=== PATIENT | male | born 1995 ===

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

== ENCOUNTER 2018-05-02 17:03 | Emergency (ER) | payer OTHER ==
[2018-05-02] MEDS ORDERED: NS 1,000 ML IV ONE ×2 (17:29)
[2018-05-02] MEDS ORDERED: ONDANSETRON 4 MG/2 ML VIAL IVP ONE (17:30)
[2018-05-02] MEDS ORDERED: PANTOPRAZOLE SODIUM 40 MG VIAL IVP ONE (18:03)
--- NOTE | 2018-05-02 18:08 | EDPHY ---
H & P Stated Complaint: c/o flu like s/s x 3 days today vomiting blood Time Seen by Provider: 05/02/18 17:11 HPI/ROS: This patient reports 3 days of illness with intermittent vomiting. He explains that 3 days ago he started with coryza and vomiting with associated dry hacking cough. Since then he has tolerated fluids intermittently but currently has vomiting with ongoing nausea. He also describes associated myalgias and fevers. He has been taking ibuprofen P regularly 600 mg per 6 hr for aches and fevers and then today shortly prior to arrival had some red blood in his emesis- small to moderate amount. He was brought in by his mother for evaluation of these complaints. ROS: Constitutional: Subjective low-grade fevers. Positive myalgias and fatigue HEENT: Coryza but no sinus pain. He does have a sore throat of moderate intensity. He is not sure if that started after the vomiting or before. Denies any ear pain. Pulmonary: No shortness of breath. No pleuritic pain. No hemoptysis Cardiovascular: He denies lightheadedness. No chest pain. GI: As per HPI. Normal bowel movements with no diarrhea. No dark tarry stools. No larissa coffee-ground emesis. No abdominal pain : No complaints Integumentary: No rash 10 point review of symptoms is performed and otherwise negative with exception of pertinent positives and negatives listed in HPI and ROS Source: Patient Exam Limitations: No limitations - Personal History Current Tetanus Diphtheria and Acellular Pertussis (TDAP): Yes - Medical/Surgical History PMH: Type 1 diabetes Hx Asthma: No Hx Chronic Respiratory Disease: No Hx Diabetes: Yes Hx Cardiac Disease: No Hx Renal Disease: No Hx Cirrhosis: No Hx Alcoholism: No Hx HIV/AIDS: No Hx Splenectomy or Spleen Trauma: No Other PMH: denies - Family History Significant Family History: No pertinent family hx - Social History Smoking Status: Never smoked Alcohol Use: Rarely Drug Use: None - Physical Exam Exam: General Appearance: Alert, no distress. Eyes: Pupils equal and round no pallor or injection. ENT, Mouth: Mucous membranes moist. Oropharynx: No significant erythema exudates is appreciated Respiratory: Dry hacking cough with no rales. No wheezing. No rhonchi. Cardiovascular: Regular rate and rhythm. Gastrointestinal: Abdomen is soft and nontender, no masses, bowel sounds normal. Neurological: GCS 15. Skin: Warm and dry, no rashes. Musculoskeletal: Neck is supple nontender. Extremities are symmetrical, full range of motion. Psychiatric: Mood and affect are normal DIFFERENTIAL DIAGNOSIS: After history and physical exam differential diagnosis was considered for influenza, URI with cough, bronchitis, dehydration: Doubt DKA, doubt pneumonia Constitutional: Initial Vital Signs Temperature (C) 37 C 05/02/18 17:14 Heart Rate 111 H 05/02/18 17:14 Respiratory Rate 20 05/02/18 17:14 Blood Pressure 156/100 H 05/02/18 17:14 O2 Sat (%) 97 05/02/18 17:14 O2 Delivery Mode Room Air Allergies/Adverse Reactions: No Known Allergies Allergy (Unverified 08/04/13 12:41) Home Medications: Medication Instructions Recorded Insulin Regular, Human 08/04/13 Metformin HCl 08/04/13 Cyclobenzaprine [Flexeril 10 MG 10 mg PO TID PRN #15 tab 03/16/16 (*)] oxyCODONE HCL/ACETAMINOPHEN 1 each PO Q4-6PRN PRN #20 tablet 03/16/16 [Percocet 5-325 mg Tablet] Benzonatate [Tessalon Pearles (RX)] 100 - 200 mg PO TID PRN #20 cap 05/02/18 Ondansetron Odt [Zofran Odt] 4 - 8 mg PO Q4PRN PRN #4 tab 05/02/18 Medical Decision Making ED Course/Re-evaluation: Rapid flu is positive. IV normal saline bolus x2 L with resolution of his mild tachycardia Zofran with resolution of nausea and vomiting. He tolerated p.o. Intake thereafter without emesis. He took his own insulin sliding-scale 5 units for his glucose at 299 and on recheck proximal hour later was 209 Protonix 40 mg IV CBC is normal, basic metabolic panel normal exception of hyperglycemia. Discussion: 22-year-old male with type 1 diabetes with mild hyperglycemia and dehydration associated with his influenza A diagnosis. He is 3 days out from the onset of symptoms will is not a candidate to have benefit from Tamiflu. No evidence for DKA in this patient. He does not have ketone halitosis or evidence of acid-base abnormalities on his metabolic panel. Counseled regarding this encouraged him to plan on plenty of fluids, tender control his blood sugars, ibuprofen Tylenol for fevers if needed Zofran for nausea vomiting and Tessalon Perles to control cough if needed. He understands need to return emergency department should develop any significant worsening of symptoms despite treatment plan. Regarding his hematemesis he showed me a photo of the blood in a bucket and it was a small amount light red wine colored blood. I think this is consistent with a Altagracia-Wilson tear rather than ulcer given lack of a cough ground emesis, anemia, orthostasis or other concerning findings. He received antacid here and recommended he continue [id number] antacids for the next 5-10 days - Data Points Laboratory Results: 05/02/18 05/02/18 19:09 17:55 POC Sodium 139 mEq/L mEq/L (135-145) POC Potassium 4.4 mEq/L mEq/L (3.3-5.0) POC Chloride 101.0 mEq/L mEq/L (97-110) POC Total CO2 24 mEq/L mEq/L (22-31) POC BUN 7 mg/dL mg/dL (7-23) POC Creatinine 0.5 mg/dL L mg/dL (0.7-1.3) POC Glucose 209 mg/dL H mg/dL 299 mg/dL H mg/dL (70-100) (70-100) POC Calcium 9.5 mg/dL mg/dL (8.5-10.4) Medications Given: Discontinued Medications Sodium Chloride (Ns) 1,000 mls @ 0 mls/hr IV EDNOW ONE; Wide Open PRN Reason: Protocol Stop: 05/02/18 17:30 Last Admin: 05/02/18 17:43 Dose: 1,000 mls Sodium Chloride (Ns) 1,000 mls @ 0 mls/hr IV EDNOW ONE; Wide Open PRN Reason: Protocol Stop: 05/02/18 17:30 Last Admin: 05/02/18 17:43 Dose: 1,000 mls Ondansetron HCl (Zofran) 4 mg IVP EDNOW ONE Stop: 05/02/18 17:31 Last Admin: 05/02/18 17:43 Dose: 4 mg Pantoprazole Sodium (Protonix) 40 mg IVP EDNOW ONE Stop: 05/02/18 18:04 Last Admin: 05/02/18 18:33 Dose: 40 mg Point of Care Test Results: CBC CBC Collection Date 05/02/18 CBC Collection Time 17:49 WBC 6.76 RBC 5.46 HGB 17.3 HCT 49.4 PLT 237 Neut # 4.61 Neut 68.3 LYMPH # 1.43 LYMPH 21.2 MCV 90.5 Chemistry 05/02/18 05/02/18 19:09 17:55 POC Sodium 139 mEq/L mEq/L (135-145) POC Potassium 4.4 mEq/L mEq/L (3.3-5.0) POC Chloride 101.0 mEq/L mEq/L (97-110) POC Total CO2 24 mEq/L mEq/L (22-31) POC BUN 7 mg/dL mg/dL (7-23) POC Creatinine 0.5 mg/dL L mg/dL (0.7-1.3) POC Glucose 209 mg/dL H mg/dL 299 mg/dL H mg/dL (70-100) (70-100) POC Calcium 9.5 mg/dL mg/dL (8.5-10.4) Influenza PCR Flu Nasal Swab Collection Date 05/02/18 Flu Nasal Swab Collection Time 17:59 Influenza A Result Detected Influenza B Result Not Detected Departure - Departure Disposition: Home, Routine, Self-Care Clinical Impression: Influenza A, Dehydration Vomiting Qualifiers: Vomiting type: unspecified Vomiting Intractability: non-intractable Nausea presence: with nausea Qualified Code(s): R11.2 - Nausea with vomiting, unspecified Hematemesis Qualifiers: Nausea presence: with nausea Qualified Code(s): K92.0 - Hematemesis Condition: Good Instructions: Influenza (DC), Hematemesis (ED) Additional Instructions: Diagnoses: 1. Influenza A 2. Hematemesis 3. Dehydration Plan: Drink plenty fluids Taken antacid [id number] for the next 5-10 days to help heal the Altagracia- Wilson tear-Prilosec 40 mg a day or Pepcid 40 mg a day Zofran if needed for nausea vomiting Light diet until you feel improved Tessalon Perles as needed for cough Humidifier Ibuprofen Tylenol for fevers and aches as needed. No work until her fever has resolved for 24 hr or more. Return for any significant worsening despite the treatment plan Referrals: Martha Oliveros MD [Primary Care Provider] - As per Instructions Prescriptions: Benzonatate [Tessalon Pearles (RX)] 100 - 200 mg PO TID PRN #20 cap PRN Reason: cough Ondansetron Odt [Zofran Odt] 4 - 8 mg PO Q4PRN PRN #4 tab PRN Reason: Vomiting
[2018-05-02 19:27] VITALS: BP 154/74
== END 2018-05-02 19:25 | disposition home or self-care (01) ==
LOC: CED 17:03
DX: J10.1 Influenza due to other identified influenza virus with other respiratory manifestations (principal); K92.0 Hematemesis; R11.2 Nausea with vomiting, unspecified; E10.65 Type 1 diabetes mellitus with hyperglycemia; E86.9 Volume depletion, unspecified
CPT/HCPCS: 80048-ER; 85025-QW-ER; 87400-QW-ER; 96361-ER; 96374-ER; 96375-ER; 99284-ER